=== PATIENT | male | born 2000 | race Caucasian/White ===

== ENCOUNTER 2023-02-11 10:55 | Emergency (ER) | payer OTHER, BC | END 2023-02-11 11:47 | disposition home or self-care (01) | LOC: KA.ED 10:55 | DX: S60.152A Contusion of left little finger with damage to nail, initial encounter (principal); Z79.899 Other long term (current) drug therapy; W31.82XA Contact with other commercial machinery, initial encounter; Y99.0 Civilian activity done for income or pay | CPT/HCPCS: 11740; 73130-LT; 99283 ==

== ENCOUNTER 2024-02-25 08:09 | Emergency (ER) | payer BC, OTHER ==
[2024-02-25] MEDS: Lidocaine 1% 5 ML VIAL ONE (08:31)
[2024-02-25] MEDS: Lidocaine 1% 5 ML VIAL INJECT ONE (08:31)
== END 2024-02-25 09:13 | disposition home or self-care (01) ==
LOC: KA.ED 08:09
DX: S61.212A Laceration without foreign body of right middle finger without damage to nail, initial encounter (principal); J45.909 Unspecified asthma, uncomplicated; E03.9 Hypothyroidism, unspecified; Z79.890 Hormone replacement therapy; Z79.899 Other long term (current) drug therapy; W31.9XXA Contact with unspecified machinery, initial encounter; Y99.0 Civilian activity done for income or pay; Y92.89 Other specified places as the place of occurrence of the external cause
CPT/HCPCS: 12001; 99282; 99283; J3490